=== PATIENT | female | born 1965 | race African-American/Black ===

== ENCOUNTER 2025-09-07 13:33 | Emergency (ER) | payer MEDICAID ==
[~2025-09-07] VITALS: Ht 165.1 cm; Wt 73.0 kg
[2025-09-07 13:47] VITALS: O2SAT 100
[2025-09-07 14:29] LABS: BASOPHILS % 0.4 % (0.0-2.0); EOSINOPHILS % 1.2 % (0.0-5.0); HEMATOCRIT. 38.8 % (36.0-48.0); HEMOGLOBIN. 12.9 g/dL (12.0-16.0); LYMPHOCYTES % 34.1 % (20.0-50.0); MEAN PLATELET VOLUME 10.6 fl (7.4-10.4); MONOCYTES % 9.3 % (2.0-8.0); NEUTROPHILS % 55.0 % (40.0-76.0); PLATELET 156 x1000/uL (130-400); RED BLOOD CELL COUNT 4.79 mill/uL (4.2-5.4); RED CELL DISTRIBUTION WIDTH 14.9 % (11.6-14.6)
[2025-09-07 15:07] LABS: CREATININE 1.3 mg/dL (0.6-1.0); UREA NITROGEN BLOOD 26.0 mg/dL (9-23)
[2025-09-07] MEDS: FAMOTIDINE 20MG TABLET PO ONE (16:01)
[2025-09-07] MEDS: ONDANSETRON 4MG ODT PO ONE (16:02)
[2025-09-07 17:12] VITALS: BP 119/66; PULSE 94; RESP 17; TEMP 36.7; O2SAT 100
== END 2025-09-07 17:13 | disposition home or self-care (01) ==
LOC: ER 13:33
DX: R53.1 Weakness (principal); E11.9 Type 2 diabetes mellitus without complications; E78.00 Pure hypercholesterolemia, unspecified; I10 Essential (primary) hypertension
CPT/HCPCS: 99284; 80048; 85025; 36415; 93005; Q0162